=== PATIENT | female | born 1970 | race Caucasian/White ===

== ENCOUNTER 2016-08-07 21:17 | Emergency (ER) | payer SELFPAY ==
[~2016-08-07] VITALS: Ht 162.6 cm; Wt 93.7 kg
[~2016-08-07 21:17] MED LIST: ADVIL PO; BENAZEPRIL PO; TYLENOL PO
[2016-08-07 21:26] VITALS: Ht 162.6 cm; Wt 93.7 kg
[2016-08-07 23:38] LABS: ADD UMIC NO; URINE BILIRUBIN (Dip) NEGATIVE (NEGATIVE); URINE BLOOD (Dip) NEGATIVE (NEGATIVE); URINE COLOR LT. YELLOW (YELLOW); URINE GLUCOSE (Dip) NEGATIVE (NEGATIVE); URINE KETONES (Dip) NEGATIVE (NEGATIVE); URINE LEUKOCYTE ESTERASE (Dip) NEGATIVE (NEGATIVE); URINE NITRITE (Dip) NEGATIVE (NEGATIVE); URINE TOTAL PROTEIN (Dip) NEGATIVE (NEGATIVE); URINE UROBILINOGEN (Dip) 0.2 E.U./dL (0.1-1.0)
--- NOTE | 2016-08-08 00:16 | RADRPT ---
PROCEDURE: US Pelvis. CLINICAL INDICATION: Left-sided pelvic pain TECHNIQUE: Multiple sonographic images of the pelvis were obtained utilizing a transabdominal and endovaginal technique. The images were reviewed on a PACS workstation. COMPARISON: None available FINDINGS: Uterus: Heterogeneous, enlarged and lobulated in contour most consistent with leiomyomatous changes. A hypoechoic intramural mass measured by the manager data warehouse in the mid uterine corpus is estimated at 8.7 x 8.5 x 8.3 cm and likely one of the multiple fibroids. Overall uterine size is estimated at 15 .4 x 8.7 x 8.3 cm. Cervix: No abnormalities of significance are seen. Endometrium: Increased in thickness; 13.1 mm. Findings may be related to the patients phase of mens truation presumably a premenopausal status. Alternatively, submucosal leiomyoma is a possibility Right ovary / adnexa: The ovary is not visualized. There is no evidence of adnexal mass Left ovary/adnexa: The ovary is not visualized. There is no evidence of adnexal mass Cul-de-sac: No evidence of free fluid. RPTAT:HJJR IMPRESSION: 1. Enlarged leiomyomatous uterus, a fibroid measured by the manager data warehouse is estimated at 8.7 cm in gr eatest dimension. 2. Endometrial thickness may be related to the patient's phase of menstruation presuming a premenopa usal state. Alternatively submucosal leiomyoma, endometrial hyperplasia or less likely endometrial carcinoma would be considerations. Correlation with dysfunctional uterine bleeding is recommended. 3. Nonvisualization of the ovaries. Physician Migue Date Time Electronically viewed and signed by Physician Migue on 08/08/2016 00:15 /
[2016-08-08 01:18] VITALS: BP 176/94; PULSE 88; RESP 16
--- NOTE | 2016-08-08 01:19 | ERD ---
ER Documentation Chief Complaint Date/Time DATE: 08/08/16 TIME: 01:15 Chief Complaint painful urination HPI 45-year-old female with a past medical history of hypertension and status post cholecystectomy presents the ED complaining of lower pelvic abdominal pain predominantly in the left lower quadrant started intermittently for months ago. States that her pain is there even though she does not urinate and is unsure if this is a urinary tract infection. States that she has had recurrent urinary tract infections. States that she gets irregular menses. States that her last menses was sometime on June 2016. Denies any current vaginal discharge, vaginal bleeding, abdominal pain, nausea, vomiting, diarrhea, chest pain, shortness of breath. Denies any flank pain, urgency, frequency, hematuria. ROS All systems reviewed and are negative except as per history of present illness. Medications Home Meds Reported Medications [Benazepril] No Conflict Check, PO DAILY 08/25/12 [Advil] No Conflict Check, PO DAILY Y 08/25/12 [Tylenol] No Conflict Check, PO DAILY Y 08/25/12 Allergies Allergies: Coded Allergies: No Known Drug Allergy (Verified Allergy, Unknown, 08/25/12) PMhx/Soc History of Surgery: Yes (CHOLECYSTECTOMY 2 YRS AGO, IUD TAKEN OUT) Anesthesia Reaction: No Hx Neurological Disorder: Yes (MIGRAINES 2 YRS ) Hx Respiratory Disorders: No Hx Cardiac Disorders: Yes (ANEMIA 4 YRS, HTN 8 YRS ) Hx Psychiatric Problems: No Hx Miscellaneous Medical Probl: No Hx Alcohol Use: No Hx Substance Use: No Hx Tobacco Use: No Smoking Status: Never smoker Physical Exam Vitals Vital Signs Date Time Temp Pulse Resp B/P Pulse Ox O2 Delivery O2 Flow Rate FiO2 08/07/16 21:26 97.8 93 20 170/80 99 Physical Exam Const: [id number]-[id number], well-nourished. In no acute distress. Head: Atraumatic, normocephalic Eyes: Normal Conjunctiva without injection. No purulent discharge. ENT: Normal external ear, nose. Moist oropharynx without tonsillar exudates. Non -erythematous pharynx. Uvula midline. No drooling. No trismus. Neck: No cervical midline tenderness. Full range of motion. No meningismus. No cervical lymphadenopathy. No JVD. Resp: Clear to auscultation bilaterally. No wheezing, rhonchi, rales, or crackles. No accessory muscle use. No retractions. Cardio: Regular rate and rhythm. No murmurs, rubs or gallops. Abd: Soft, left lower pelvic tenderness, non distended. Normal bowel sounds. No palpable masses. No rebound tenderness. No guarding. Negative McBurney's point. Negative psoas sign. Negative obturator sign. Skin: No petechiae or rashes Back: No midline tenderness. No CVA tenderness. Ext: No cyanosis, or edema. Neur: Awake and alert. Normal gait. Normal coordination. Psych: Normal Mood and Affect Results 24 hrs Laboratory Tests Test 08/07/16 23:25 Urine Bilirubin NEGATIVE Urine Clarity CLEAR Urine Color LT. YELLOW Urine Glucose NEGATIVE% Urine Hemoglobin NEGATIVE Urine Ketones NEGATIVE Urine Leukocyte Esterase NEGATIVE Urine Nitrite NEGATIVE Urine Specific [place] 1.025 Urine Total Protein NEGATIVE Urine Urobilinogen 0.2 E.U./dL Urine pH 6.0 Procedures/MDM This is a 45-year-old female with a past medical history of hypertension and status post cholecystectomy presents the ED complaining of left lower pelvic pain. Patient is afebrile and nontoxic-appearing. Patient's blood pressure was noted to be 170/80. Patient's blood pressure was elevated (>120/80) but appears stable without evidence of hypertension emergency or urgency. The patient was counseled about the risks of hypertension and urged to pursue outpatient monitoring and therapy within a week with their primary care physician. Low suspicion for end organ damage. A pelvic ultrasound and urinalysis, urine was ordered to further evaluate patient. Urinalysis shows no leukocyte esterase, hematuria, nitrite. Negative urine test noted. Since patient reports dysuria, a urine culture was ordered to further evaluate patient. PROCEDURE: US Pelvis. CLINICAL INDICATION: Left-sided pelvic pain TECHNIQUE: Multiple sonographic images of the pelvis were obtained utilizing a transabdominal and endovaginal technique. The images were reviewed on a PACS workstation. COMPARISON: None available FINDINGS: Uterus: Heterogeneous, enlarged and lobulated in contour most consistent with leiomyomatous changes. A hypoechoic intramural mass measured by the willower in the mid uterine corpus is estimated at 8.7 x 8.5 x 8.3 cm and likely one of the multiple fibroids. Overall uterine size is estimated at 15.4 x 8.7 x 8.3 cm. Cervix: No abnormalities of significance are seen. Endometrium: Increased in thickness; 13.1 mm. Findings may be related to the patients phase of menstruation presumably a premenopausal status. Alternatively , submucosal leiomyoma is a possibility Right ovary / adnexa: The ovary is not visualized. There is no evidence of adnexal mass Left ovary/adnexa: The ovary is not visualized. There is no evidence of adnexal mass Cul-de-sac: No evidence of free fluid. RPTAT:HJJR IMPRESSION: 1. Enlarged leiomyomatous uterus, a fibroid measured by the willower is estimated at 8.7 cm in greatest dimension. 2. Endometrial thickness may be related to the patient's phase of menstruation presuming a premenopausal state. Alternatively submucosal leiomyoma, endometrial hyperplasia or less likely endometrial carcinoma would be considerations. Correlation with dysfunctional uterine bleeding is recommended. 3. Nonvisualization of the ovaries. Patient's ultrasound shows a fibroid measuring up to 8.7 cm. Low suspicion for symptomatic anemia, ectopic , sepsis, PID, appendicitis, ovarian torsion, tubo-ovarian abscess, surgical abdomen, or other emergent conditions. Patient was educated that there is a risk for threatened . Patient to follow up with CERTIFIED [facility]KL[facility] OPERATOR in 2 days for further evaluation and treatment. Patient is to return sooner to the ED for any worsening symptoms. Patient's questions were answered. Patient understood and agreed with discharge plan. Departure Diagnosis: Primary Impression: Fibroid Uterine leiomyoma location: unspecified location Qualified Code: D25.9 - Uterine leiomyoma, unspecified location Condition: Stable Patient Instructions: What Are Fibroids?, Uterine Fibroids Referrals: [facility] YOU HAVE RECEIVED A MEDICAL SCREENING EXAM AND THE RESULTS INDICATE THAT YOU DO NOT HAVE A CONDITION THAT REQUIRES URGENT TREATMENT IN THE EMERGENCY DEPARTMENT. FURTHER EVALUATION AND TREATMENT OF YOUR CONDITION CAN WAIT UNTIL YOU ARE SEEN IN YOUR DOCTORS OFFICE WITHIN THE NEXT 1-2 DAYS. IT IS YOUR RESPONSIBILITY TO MAKE AN APPOINTMENT FOR FOLOW-UP CARE. IF YOU HAVE A PRIMARY DOCTOR --you should call your primary doctor and schedule an appointment IF YOU DO NOT HAVE A PRIMARY DOCTOR YOU CAN CALL OUR PHYSICIAN REFERRAL HOTLINE AT IF YOU CAN NOT AFFORD TO SEE A PHYSICIAN YOU CAN CHOSE FROM THE FOLLOWING [facility] [address] [facility]. [facility]818) [phone] [facility]. [facility] [address] [facility] [address] [facility]. [facility] [phone] [facility]. [facility]. [address] [facility]. [facility] YOU HAVE RECEIVED A MEDICAL SCREENING EXAM AND THE RESULTS INDICATE THAT YOU DO NOT HAVE A CONDITION THAT REQUIRES URGENT TREATMENT IN THE EMERGENCY DEPARTMENT. FURTHER EVALUATION AND TREATMENT OF YOUR CONDITION CAN WAIT UNTIL YOU ARE SEEN IN YOUR DOCTORS OFFICE WITHIN THE NEXT 1-2 DAYS. IT IS YOUR RESPONSIBILITY TO MAKE AN APPOINTMENT FOR FOLOW-UP CARE. IF YOU HAVE A PRIMARY DOCTOR --you should call your primary doctor and schedule and appointment IF YOU DO NOT HAVE A PRIMARY DOCTOR YOU CAN CALL OUR PHYSICIAN REFERRAL HOTLINE AT . IF YOU CAN NOT AFFORD TO SEE A PHYSICIAN YOU CAN CHOSE FROM THE FOLLOWING [facility] INSTITUTIONS: [facility] [address] [place] [address] [facility] [address] [place] [address] [facility] [address] [place] [address] CERTIFIED FORKLIFT OPER[place] [address] [facility] [address] [place], [place] [phone] OFFICE FAX MARIAN ANN [address] [place] [place] [id number] [place] [address] [place] [phone] CARMEL BECERRA [address] [facility], [address] [address] [address] [address] [place] [id number] [facility] [address] [place], [place] [phone] [facility] [id number] - [place] [address] [facility] [phone] PASCAL, JULIANA [address] [facility]. [address], [facility] [phone] DOSHI, [facility] [address] [place] [address] [facility] Hours: 8:00 am - 5:00 pm Additional Instructions: FOLLOW UP WITH YOUR PRIMARY CARE PHYSICIAN TOMORROW for a referral to [facility]. Return to this facility if you are not improving as expected. YULIET POWELL PA-C Aug 08, 2016 01:19
== END 2016-08-08 01:20 | disposition home or self-care (01) ==
LOC: FTE 21:17
DX: D25.9 Leiomyoma of uterus, unspecified (principal); I10 Essential (primary) hypertension; R10.2 Pelvic and perineal pain
CPT/HCPCS: 76830; 76856; 81003; 87086; 99284

== ENCOUNTER 2016-08-18 10:32 | Emergency (ER) | payer MEDICAID ==
[~2016-08-18] VITALS: Wt 80.6 kg
--- NOTE | 2016-08-18 11:58 | RADRPT ---
PROCEDURE: CT Brain without contrast. CLINICAL INDICATION: Dizziness and nausea TECHNIQUE: Axial images from the skull base through the vertex without IV contrast. Multiplanar r eformatted images were made. Images were reviewed on a PACS workstation. The CTDIvol is 39.3 mGy a nd the DLP is 634.23 mGycm. One or more of the following dose reduction techniques were used: autom ated exposure control, adjustment of the mA and/or kV according to patient size, or use of iterative reconstruction technique. COMPARISON: None. FINDINGS: The ventricles and cisterns are normal for age. There is no evidence for territorial infarction or intracranial hemorrhage. No mass or midline shift is seen. No extra-axial fluid collection is seen . The visualized paranasal sinuses and mastoids are clear. IMPRESSION: No definite acute intracranial abnormality. RPTAT: HLBE Physician Irais Date Time Electronically viewed and signed by Josselin Sanford Physician on 08/18/2016 11:58 SEDRICK/
[2016-08-18] MEDS ORDERED: ACET/BUTAL/CAFF TAB PO ONE (12:00)
[2016-08-18] MEDS ORDERED: FIORICET PO (12:05)
[2016-08-18] MEDS ORDERED: BENA20TA48 PO (12:05)
--- NOTE | 2016-08-18 12:09 | ERD ---
ER Documentation Chief Complaint Date/Time DATE: 08/18/16 TIME: 1131 Chief Complaint non traumativ headache with dizziness. no neuro deficit. mild blurry vision HPI 45-year-old female presents to the emergency department complaining of a headache. Patient was in her usual state of health into the last few days which time she had an atraumatic headache. This was not acute in onset and was not thunderclap in nature. Patient's pain was poorly localized mostly in the back part of her head and rated as an 8/10. Patient reported no fevers, chills, photophobia. Patient reported no focal weakness or numbness or difficulty speaking associated with the headache. Patient's pain was approximately 8/10. Patient has had similar headaches which she reports is migraines although this 1 is described as slightly more severe than usual. Otherwise the quality of the headache is essentially the same. ROS All systems reviewed and are negative except as per history of present illness. Medications Home Meds Active Scripts Benazepril Hcl* (Benazepril Hcl*) 20 Mg Tablet, 20 MG PO DAILY, #30 TAB Prov:SAVANA MATHIS 08/18/16 Acetamin/Butalbital/Caffeine* (Fioricet*) [id number] Tab, 1 TAB PO Q6H Y for PAIN, #30 TAB Prov:SAVANA MATHIS 08/18/16 Reported Medications [Benazepril] No Conflict Check, PO DAILY 08/25/12 [Advil] No Conflict Check, PO DAILY Y 08/25/12 [Tylenol] No Conflict Check, PO DAILY Y 08/25/12 Allergies Allergies: Coded Allergies: No Known Drug Allergy (Verified Allergy, Unknown, 08/25/12) PMhx/Soc History of Surgery: Yes (CHOLECYSTECTOMY 2 YRS AGO, IUD TAKEN OUT) Anesthesia Reaction: No Hx Neurological Disorder: Yes (MIGRAINES 2 YRS ) Hx Respiratory Disorders: No Hx Cardiac Disorders: Yes (ANEMIA 4 YRS, HTN 8 YRS ) Hx Psychiatric Problems: No Hx Miscellaneous Medical Probl: No Hx Alcohol Use: No Hx Substance Use: No Hx Tobacco Use: No Smoking Status: Never smoker FmHx No history of significant subarachnoid hemorrhage or other intracranial neurologic abnormalities Physical Exam Vitals Vital Signs Date Time Temp Pulse Resp B/P Pulse Ox O2 Delivery O2 Flow Rate FiO2 08/18/16 10:35 98.6 101 20 219/108 78 Physical Exam GENERAL: The patient is well developed and appropriate for usual state of health in no apparent distress HEENT: Pupils equal, round, and reactive to light. EOMI. There is no scleral icterus. NECK: C-spine is soft and supple, there is no meningismus. There is no cervical lymphadenopathy. LUNGS: Clear to auscultation bilaterally. There are no rales, wheezes or rhonchi. HEART: Regular rate and rhythm, no murmurs, clicks, rubs or gallops. ABDOMEN: Soft, non-tender, non-distended. There are bowel sounds in all four quadrants. No rebound or guarding. EXTREMITIES: There is no peripheral cyanosis or edema. No focal swelling or erythema. NEURO: The patient moves all four extremities with 5/5 strength. Cranial nerves II - XII are intact. Normal gait. Alert and oriented SKIN: There is no apparent rash or petechiae. HEME/LYMPHATIC: There is no evidence of excessive bruising or lymphedema. PSYCHIATRIC: The patient does not appear anxious or depressed. Results 24 hrs Current Medications Medications (Trade) Dose Ordered Sig/Manish Route PRN Reason Start Time Stop Time Status Last Admin Dose Admin Acetaminophen/ Butalbital/ Caffeine (Fioricet) 1 tab ONCE ONCE PO 08/18/16 12:00 08/18/16 12:01 DC 08/18/16 11:57 Procedures/MDM Patient was taken to a room, seen and evaluated. Comfort measures were initiated. Diagnostic tests were ordered and reviewed. RADIOLOGY: reviewed with the radiologist REEVALUATION: Patient remained neurologically nonfocal and normal and well- appearing MEDICAL DECISION MAKIN-year-old female presents to the emergency department with a nonspecific headache. Differential diagnosis was broad and potential high acuity, but at this point the patient shows no evidence of subarachnoid hemorrhage clinically, no evidence of stroke and no evidence of tumor or other high-risk concerns. After treatment of the patient's pain, her blood pressure is still high but normalizing and she has no evidence of stroke or other endorgan dysfunction. Patient remains clinically well and appropriate for outpatient. Departure Diagnosis: Primary Impression: Headache Additional Impression: Hypertension Condition: Stable Patient Instructions: Self-Care for Headaches, High Blood Pressure ( Hypertension) Additional Instructions: See your doctor for follow-up as discussed. Take a copy of your test results, if appropriate, to this follow-up visit. See your doctor or return here if your symptoms do not improve as expected. At any time, please return to the emergency department for any change or worsening in her symptoms. SAVANA MATHIS Aug 18, 2016 12:09
[2016-08-18 12:18] VITALS: BP 189/103; PULSE 83; RESP 20; TEMP 98.3
== END 2016-08-18 12:46 | disposition home or self-care (01) ==
LOC: E/R 10:32
DX: R51 Headache (principal); I10 Essential (primary) hypertension; R40.2252 Coma scale, best verbal response, oriented, at arrival to emergency department; R40.2142 Coma scale, eyes open, spontaneous, at arrival to emergency department; R40.2362 Coma scale, best motor response, obeys commands, at arrival to emergency department
CPT/HCPCS: 70450; Z7502; Z7610

== ENCOUNTER 2017-08-12 21:51 | Emergency (ER) | END 2017-08-13 04:35 | disposition home or self-care (01) ==

== ENCOUNTER 2017-10-15 06:11 | Day surgery (SDC) | END 2017-10-15 10:55 | disposition home or self-care (01) ==